=== PATIENT | male | born 1995 | race Caucasian/White ===

== ENCOUNTER 2018-06-14 16:56 | Emergency (ER) | payer SELFPAY ==
[~2018-06-14] VITALS: Ht 182.9 cm; Wt 78.9 kg
[2018-06-14 17:19] VITALS: Ht 182.9 cm; Wt 78.9 kg
[2018-06-14 22:04] VITALS: BP 112/70
== END 2018-06-14 22:37 | disposition home or self-care (01) ==
LOC: ED 16:56
DX: S51.812A Laceration without foreign body of left forearm, initial encounter (principal); Z90.89 Acquired absence of other organs; W45.8XXA Other foreign body or object entering through skin, initial encounter; Y93.89 Activity, other specified; Y92.89 Other specified places as the place of occurrence of the external cause; Y99.8 Other external cause status
CPT/HCPCS: J1885; J2001